=== PATIENT | male | born 1955 | race Caucasian/White ===

== ENCOUNTER 2019-12-19 14:23 | Inpatient (IN) ==
[2019-12-19 15:20] LABS: Basophils % 0.3 % (0.0-0.8); Eosinophils % 0.4 % (0.00-10.9); Hematocrit 39.1 VOL% (42.0-52.0); Hemoglobin 12.2 GM/DL (14.0-18.0); Immature Granulocytes % 0.3 %; Immature Granulocytes Absolute 0.03 #; Lymphocytes # 1.8 10*3/uL (1.4-4.0); Mean Corpuscular HGB Conc 31.2 GM/DL (32-36); Mean Corpuscular Volume 89.7 FL (87-102); Mean Platelet Volume 10.1 FL (9.6-12.0); Monocytes % 8.6 % (1.7-12.7); Neutrophils % 71.4 % (38.7-73.9); Platelet Count 302 T/CUMM (130-400); Red Blood Count 4.36 MC/CUMM (3.8-5.5); Red Cell Distribution Width 12.7 % (9.3-17.3); White Blood Count 9.3 T/CUMM (4-12)
[2019-12-19 15:45] LABS: Ferritin 173.2 ng/ml (26-388)
[2019-12-19 16:57] LABS: Bilirubin,Total 0.6 MG/DL (0.2-1.0); Calcium 8.5 MG/DL (8.5-10.1); Osmolality,Calculated 269.4 MOS/KG (273-304); Total Protein 8.1 G/DL (6.4-8.3)
[2019-12-19] MEDS ORDERED: GLUCAGON 1 MG VIAL IM PRN (17:33)
[2019-12-19] MEDS ORDERED: DEXTROSE 50% 25 GM/50 ML VIAL IV PRN ×2 (17:33)
[2019-12-19] MEDS ORDERED: traMADol 50 MG TABLET PO PRN (17:45)
[2019-12-19] MEDS ORDERED: SODIUM CHLORIDE 0.9% 100 ML IV ONE (18:23)
[2019-12-19] MEDS ORDERED: cefTRIAXone 1,000 MG VIAL ONE (18:23)
[2019-12-19] MEDS: cefTRIAXone 1,000 MG in SYRINGE 1 EACH IV SCH (18:50)
[2019-12-19 19:18] LABS: ABG Base Excess 2.9 MMOL/L (-2.5-2.5); ABG HCO3 27.4 MMOL/L (20-26); ABG Oxygen Saturation 85.5 % (95-100); ABG PCO2 41.8 MM HG (35-48); ABG PH 7.435 (7.35-7.45); ABG PO2 51.3 MM HG (80-95); ABG TCO2 28.7 MMOL/L (23-27); Allen Test Positive
[2019-12-19] MEDS ORDERED: AZITHROMYCIN INJ 500 MG in SODIUM CHLORIDE 0.9% 250 ML IV SCH (21:00)
[2019-12-19] MEDS ORDERED: FUROSEMIDE 20 MG TABLET PO PRN (21:12)
[2019-12-19] MEDS: ENOXAPARIN 100 MG/ML SYRINGE SUBCUT SCH (21:50)
[2019-12-19] MEDS: SIMVASTATIN 10 MG TABLET PO SCH (22:56)
[2019-12-19] MEDS: BENZONATATE 100 MG CAPSULE PO SCH (22:56)
[2019-12-19] MEDS: guaiFENesin/DM ER 600-30 MG TABLET PO SCH (22:56)
[2019-12-20 05:30] LABS: Basophils % 0.4 % (0.0-0.8); Eosinophils # 0.2 10*3/uL (0.0-0.87); Eosinophils % 2.5 % (0.00-10.9); Hematocrit 35.6 VOL% (42.0-52.0); Hemoglobin 11.1 GM/DL (14.0-18.0); Immature Granulocytes % 0.5 %; Immature Granulocytes Absolute 0.04 #; Lymphocytes # 2.5 10*3/uL (1.4-4.0); Lymphocytes % 30.9 % (21.2-54.2); Mean Corpuscular HGB Conc 31.2 GM/DL (32-36); Mean Corpuscular Volume 88.1 FL (87-102); Mean Platelet Volume 9.6 FL (9.6-12.0); Monocytes % 11.2 % (1.7-12.7); Neutrophils % 54.5 % (38.7-73.9); Platelet Count 287 T/CUMM (130-400); Red Blood Count 4.04 MC/CUMM (3.8-5.5); Red Cell Distribution Width 12.4 % (9.3-17.3); White Blood Count 8.1 T/CUMM (4-12)
[2019-12-20 05:48] LABS: Risk Ratio 2.56; VLDL CHOLESTEROL 15.4 MG/DL
[2019-12-20 05:51] LABS: Hypochromasia 1+; Ovalocytes Slight
[2019-12-20 05:52] LABS: Microcytosis Slight; Platelet Estimate Normal
[2019-12-20 06:28] LABS: Albumin 2.7 G/DL (3.4-5.0); Bilirubin,Total 0.5 MG/DL (0.2-1.0); Calcium 8.6 MG/DL (8.5-10.1); Ferritin 185.7 ng/ml (26-388); Osmolality,Calculated 277.5 MOS/KG (273-304); Total Protein 7.2 G/DL (6.4-8.3)
[2019-12-20 06:46] LABS: Sedimentation Rate-Westergren 50 MM/HR (0-20)
[2019-12-20] MEDS: amLODIPine 2.5 MG TABLET PO SCH (08:29)
[2019-12-20] MEDS: PANTOPRAZOLE 40 MG TABLET PO SCH (08:29)
[2019-12-20] MEDS: ENALAPRIL 20 MG TABLET PO SCH (08:29)
[2019-12-20] MEDS: cefTRIAXone 1,000 MG in SYRINGE 1 EACH IV SCH (08:29)
[2019-12-20] MEDS: guaiFENesin/DM ER 600-30 MG TABLET PO SCH ×2 (08:29→20:52)
[2019-12-20] MEDS: ASPIRIN EC 81 MG TABLET PO SCH (08:29)
[2019-12-20] MEDS: BENZONATATE 100 MG CAPSULE PO SCH ×3 (08:29→20:52)
[2019-12-20] MEDS: Glucosam-Chon-Msm1-C-Mang-Bosw [Osteo Bi-Flex Triple Strength] 1 PO SCH (10:12)
[2019-12-20] MEDS: ENOXAPARIN 100 MG/ML SYRINGE SUBCUT SCH ×2 (10:40→20:51)
[2019-12-20] MEDS ORDERED: REMDESIVIR 200 MG in SODIUM CHLORIDE 0.9% 210 ML IV ONE (17:00)
[2019-12-20] MEDS: AZITHROMYCIN 250 MG TABLET PO SCH (20:52)
[2019-12-20] MEDS: SIMVASTATIN 10 MG TABLET PO SCH (20:52)
[2019-12-21 05:19] LABS: Basophils % 0.4 % (0.0-0.8); Eosinophils # 0.2 10*3/uL (0.0-0.87); Eosinophils % 3.3 % (0.00-10.9); Hematocrit 35.7 VOL% (42.0-52.0); Hemoglobin 11.1 GM/DL (14.0-18.0); Immature Granulocytes % 0.4 %; Immature Granulocytes Absolute 0.03 #; Lymphocytes # 2.2 10*3/uL (1.4-4.0); Lymphocytes % 30.9 % (21.2-54.2); Mean Corpuscular HGB Conc 31.1 GM/DL (32-36); Mean Corpuscular Volume 88.6 FL (87-102); Mean Platelet Volume 9.5 FL (9.6-12.0); Monocytes % 8.5 % (1.7-12.7); Neutrophils % 56.5 % (38.7-73.9); Platelet Count 324 T/CUMM (130-400); Red Blood Count 4.03 MC/CUMM (3.8-5.5); Red Cell Distribution Width 12.3 % (9.3-17.3); White Blood Count 7.2 T/CUMM (4-12)
[2019-12-21 05:45] LABS: Albumin 2.9 G/DL (3.4-5.0); Bilirubin,Total 0.7 MG/DL (0.2-1.0); Calcium 8.8 MG/DL (8.5-10.1); Ferritin 207.3 ng/ml (26-388); Osmolality,Calculated 280.3 MOS/KG (273-304); Total Protein 7.4 G/DL (6.4-8.3)
[2019-12-21 05:50] LABS: Eosinophils 3 % (0-10); Hypochromasia 1+; Lymphocytes 27 % (20-55); Segmented Neutrophils 62 % (50-85); Total Cells Counted 100
[2019-12-21 05:52] LABS: Microcytosis Slight
[2019-12-21 05:53] LABS: Platelet Estimate Normal; Polychromasia Slight
[2019-12-21 07:45] LABS: Sedimentation Rate-Westergren 38 MM/HR (0-20)
[2019-12-21] MEDS: ENALAPRIL 20 MG TABLET PO SCH (09:01)
[2019-12-21] MEDS: ASPIRIN EC 81 MG TABLET PO SCH (09:02)
[2019-12-21] MEDS: guaiFENesin/DM ER 600-30 MG TABLET PO SCH ×2 (09:02→20:33)
[2019-12-21] MEDS: PANTOPRAZOLE 40 MG TABLET PO SCH (09:02)
[2019-12-21] MEDS: BENZONATATE 100 MG CAPSULE PO SCH ×3 (09:02→20:33)
[2019-12-21] MEDS: amLODIPine 2.5 MG TABLET PO SCH (09:02)
[2019-12-21] MEDS: Glucosam-Chon-Msm1-C-Mang-Bosw [Osteo Bi-Flex Triple Strength] 1 PO SCH (09:03)
[2019-12-21] MEDS: cefTRIAXone 1,000 MG in SYRINGE 1 EACH IV SCH (09:03)
[2019-12-21] MEDS: ENOXAPARIN 100 MG/ML SYRINGE SUBCUT SCH ×2 (09:03→20:32)
[2019-12-21] MEDS: REMDESIVIR 100 MG in SODIUM CHLORIDE 0.9% 230 ML IV SCH (16:10)
[2019-12-21] MEDS: SIMVASTATIN 10 MG TABLET PO SCH (20:32)
[2019-12-21] MEDS: AZITHROMYCIN 250 MG TABLET PO SCH (20:34)
[2019-12-22 05:37] LABS: ABG Base Excess 6.2 MMOL/L (-2.5-2.5); ABG HCO3 29.5 MMOL/L (20-26); ABG Oxygen Saturation 67.3 % (95-100); ABG PCO2 50.6 MM HG (35-48); Allen Test Positive
[2019-12-22 06:36] LABS: ABG Base Excess 5.2 MMOL/L (-2.5-2.5); ABG Oxygen Saturation 91.2 % (95-100); ABG PCO2 44.9 MM HG (35-48); ABG PH 7.435 (7.35-7.45); ABG PO2 64.1 MM HG (80-95); ABG TCO2 27.1 MMOL/L (23-27); Allen Test Positive
[2019-12-22 07:30] LABS: Basophils % 0.4 % (0.0-0.8); Eosinophils # 0.2 10*3/uL (0.0-0.87); Eosinophils % 2.9 % (0.00-10.9); Hematocrit 35.8 VOL% (42.0-52.0); Hemoglobin 10.8 GM/DL (14.0-18.0); Immature Granulocytes % 0.6 %; Immature Granulocytes Absolute 0.04 #; Lymphocytes # 1.9 10*3/uL (1.4-4.0); Lymphocytes % 27.2 % (21.2-54.2); Mean Corpuscular HGB Conc 30.2 GM/DL (32-36); Mean Corpuscular Volume 90.4 FL (87-102); Mean Platelet Volume 9.6 FL (9.6-12.0); Monocytes % 9.1 % (1.7-12.7); Neutrophils % 59.8 % (38.7-73.9); Platelet Count 378 T/CUMM (130-400); Red Blood Count 3.96 MC/CUMM (3.8-5.5); Red Cell Distribution Width 12.3 % (9.3-17.3); White Blood Count 6.9 T/CUMM (4-12)
[2019-12-22 08:01] LABS: Albumin 2.9 G/DL (3.4-5.0); Bilirubin,Total 0.7 MG/DL (0.2-1.0); Calcium 8.8 MG/DL (8.5-10.1); Ferritin 181.2 ng/ml (26-388); Osmolality,Calculated 275.5 MOS/KG (273-304); Total Protein 6.9 G/DL (6.4-8.3)
[2019-12-22 08:04] LABS: Atypical Lymphocytes Few; Band Neutrophils 1 % (0-10); Eosinophils 2 % (0-10); Hypochromasia 1+; Lymphocytes 22 % (20-55); Microcytosis Slight; Ovalocytes Slight; Platelet Estimate Normal; Segmented Neutrophils 60 % (50-85); Total Cells Counted 100
[2019-12-22] MEDS: BENZONATATE 100 MG CAPSULE PO SCH ×3 (08:39→20:31)
[2019-12-22] MEDS: ENALAPRIL 20 MG TABLET PO SCH (08:40)
[2019-12-22] MEDS: cefTRIAXone 1,000 MG in SYRINGE 1 EACH IV SCH (08:40)
[2019-12-22] MEDS: guaiFENesin/DM ER 600-30 MG TABLET PO SCH ×2 (08:40→20:31)
[2019-12-22] MEDS: amLODIPine 2.5 MG TABLET PO SCH (08:40)
[2019-12-22] MEDS: PANTOPRAZOLE 40 MG TABLET PO SCH (08:41)
[2019-12-22] MEDS: ASPIRIN EC 81 MG TABLET PO SCH (08:41)
[2019-12-22] MEDS: ENOXAPARIN 100 MG/ML SYRINGE SUBCUT SCH ×2 (08:41→20:32)
[2019-12-22] MEDS: Glucosam-Chon-Msm1-C-Mang-Bosw [Osteo Bi-Flex Triple Strength] 1 PO SCH (08:41)
[2019-12-22 08:43] LABS: Sedimentation Rate-Westergren 57 MM/HR (0-20)
[2019-12-22] MEDS ORDERED: SODIUM CHLORIDE 0.65% NASAL SPRAY 45 ML BOTTLE BOTH NARES PRN (12:42)
[2019-12-22] MEDS: REMDESIVIR 100 MG in SODIUM CHLORIDE 0.9% 230 ML IV SCH (16:23)
[2019-12-22] MEDS: AZITHROMYCIN 250 MG TABLET PO SCH (20:31)
[2019-12-22] MEDS: SIMVASTATIN 10 MG TABLET PO SCH (20:31)
[2019-12-23 06:43] LABS: Basophils % 0.6 % (0.0-0.8); Eosinophils # 0.2 10*3/uL (0.0-0.87); Eosinophils % 3.1 % (0.00-10.9); Hematocrit 38.8 VOL% (42.0-52.0); Hemoglobin 11.7 GM/DL (14.0-18.0); Immature Granulocytes % 0.9 %; Immature Granulocytes Absolute 0.06 #; Lymphocytes # 2.1 10*3/uL (1.4-4.0); Lymphocytes % 32.3 % (21.2-54.2); Mean Corpuscular HGB Conc 30.2 GM/DL (32-36); Mean Corpuscular Volume 89.8 FL (87-102); Mean Platelet Volume 9.9 FL (9.6-12.0); Neutrophils % 54.1 % (38.7-73.9); Platelet Count 390 T/CUMM (130-400); Red Blood Count 4.32 MC/CUMM (3.8-5.5); Red Cell Distribution Width 12.2 % (9.3-17.3); White Blood Count 6.4 T/CUMM (4-12)
[2019-12-23 06:49] LABS: Bilirubin,Total 0.4 MG/DL (0.2-1.0); Calcium 9.3 MG/DL (8.5-10.1); Ferritin 182.4 ng/ml (26-388); Osmolality,Calculated 278.4 MOS/KG (273-304); Total Protein 8.2 G/DL (6.4-8.3)
[2019-12-23] MEDS: ENALAPRIL 20 MG TABLET PO SCH (08:26)
[2019-12-23] MEDS: PANTOPRAZOLE 40 MG TABLET PO SCH (08:27)
[2019-12-23] MEDS: guaiFENesin/DM ER 600-30 MG TABLET PO SCH ×2 (08:27→20:40)
[2019-12-23] MEDS: BENZONATATE 100 MG CAPSULE PO SCH ×3 (08:27→20:40)
[2019-12-23] MEDS: amLODIPine 2.5 MG TABLET PO SCH (08:27)
[2019-12-23] MEDS: ASPIRIN EC 81 MG TABLET PO SCH (08:27)
[2019-12-23] MEDS: cefTRIAXone 1,000 MG in SYRINGE 1 EACH IV SCH (08:28)
[2019-12-23] MEDS: ENOXAPARIN 100 MG/ML SYRINGE SUBCUT SCH ×2 (08:28→20:40)
[2019-12-23] MEDS: Glucosam-Chon-Msm1-C-Mang-Bosw [Osteo Bi-Flex Triple Strength] 1 PO SCH (08:33)
[2019-12-23 12:44] LABS: Sedimentation Rate-Westergren 46 MM/HR (0-20)
[2019-12-23] MEDS: REMDESIVIR 100 MG in SODIUM CHLORIDE 0.9% 230 ML IV SCH (16:01)
[2019-12-23] MEDS: AZITHROMYCIN 250 MG TABLET PO SCH (20:40)
[2019-12-23] MEDS: SIMVASTATIN 10 MG TABLET PO SCH (20:40)
[2019-12-24 05:42] LABS: Basophils % 0.7 % (0.0-0.8); Eosinophils # 0.2 10*3/uL (0.0-0.87); Hematocrit 36.1 VOL% (42.0-52.0); Hemoglobin 11.2 GM/DL (14.0-18.0); Immature Granulocytes % 0.7 %; Immature Granulocytes Absolute 0.04 #; Lymphocytes # 2.2 10*3/uL (1.4-4.0); Lymphocytes % 35.5 % (21.2-54.2); Mean Corpuscular Volume 89.1 FL (87-102); Mean Platelet Volume 9.6 FL (9.6-12.0); Monocytes % 8.6 % (1.7-12.7); Neutrophils % 50.5 % (38.7-73.9); Platelet Count 401 T/CUMM (130-400); Red Blood Count 4.05 MC/CUMM (3.8-5.5); Red Cell Distribution Width 12.2 % (9.3-17.3); White Blood Count 6.1 T/CUMM (4-12)
[2019-12-24 06:34] LABS: Bilirubin,Total 0.4 MG/DL (0.2-1.0); Calcium 9.3 MG/DL (8.5-10.1); Ferritin 166.5 ng/ml (26-388); Osmolality,Calculated 278.4 MOS/KG (273-304); Total Protein 7.7 G/DL (6.4-8.3)
[2019-12-24 07:47] LABS: Sedimentation Rate-Westergren 57 MM/HR (0-20)
[2019-12-24 07:51] LABS: Band Neutrophils 2 % (0-10); Eosinophils 5 % (0-10); Lymphocytes 31 % (20-55); Platelet Estimate Normal; Segmented Neutrophils 56 % (50-85); Total Cells Counted 100
[2019-12-24 07:52] LABS: Hypochromasia 2+
[2019-12-24 08:23] VITALS: BP 147/72
[2019-12-24] MEDS: amLODIPine 2.5 MG TABLET PO SCH (08:54)
[2019-12-24] MEDS: guaiFENesin/DM ER 600-30 MG TABLET PO SCH (08:54)
[2019-12-24] MEDS: PANTOPRAZOLE 40 MG TABLET PO SCH (08:54)
[2019-12-24] MEDS: ENALAPRIL 20 MG TABLET PO SCH (08:54)
[2019-12-24] MEDS: ENOXAPARIN 100 MG/ML SYRINGE SUBCUT SCH (08:55)
[2019-12-24] MEDS: cefTRIAXone 1,000 MG in SYRINGE 1 EACH IV SCH (08:55)
[2019-12-24] MEDS: Glucosam-Chon-Msm1-C-Mang-Bosw [Osteo Bi-Flex Triple Strength] 1 PO SCH (08:55)
[2019-12-24] MEDS: ASPIRIN EC 81 MG TABLET PO SCH (08:55)
[2019-12-24] MEDS: BENZONATATE 100 MG CAPSULE PO SCH (08:55)
[2019-12-24] MEDS: REMDESIVIR 100 MG in SODIUM CHLORIDE 0.9% 230 ML IV SCH (09:51)
[2019-12-24 23:36] LABS: Specimen Source THROAT
== END 2019-12-24 12:18 | disposition home health service (06) | DRG 177 ==
LOC: N.ED 14:23 → N.EDINP 17:46 → SUATTDRO 17:46 → N.2E 22:13
PROVIDERS: ADMIT Internal Medicine; ATTEND Internal Medicine